=== PATIENT | female | born 1980 | race Caucasian/White ===

== ENCOUNTER 2017-12-16 06:32 | Day surgery (SDC) | payer MEDICAID ==
[~2017-12-16 06:32] MED LIST: LACTATED RINGER'S 1,000 ML (ENTER RATE) IV*
[2017-12-16] MEDS ORDERED: LIDOCAINE 2% (SDV) 5 ML INJ (07:00)
[2017-12-16 07:26] LABS: ADD MAN DIFF? NO
[2017-12-16 07:28] LABS: BASOPHIL # 0.1 10^3/ul (0.0-0.1); BASOPHILS % 0.9 % (0.0-2.0); EOSINOPHILS # 0.1 10^3/ul (0.0-0.5); EOSINOPHILS % 2.5 % (0.0-7.0); HEMATOCRIT 38.8 % (37.0-47.0); HEMOGLOBIN 13.2 g/dl (12.0-16.0); LYMPHOCYTES # 1.8 10^3/ul (0.8-2.9); LYMPHOCYTES % 31.3 % (15.0-51.0); MEAN CORPUSCULAR HEMOGLOBIN 29.8 pg (29.0-33.0); MEAN CORPUSCULAR VOLUME 87.6 fl (82.0-101.0); MEAN PLATELET VOLUME 11.8 fl (7.4-10.4); MONOCYTE # 0.4 10^3/ul (0.3-0.9); MONOCYTES % 7.2 % (0.0-11.0); NEUTROPHIL # 3.3 10^3/ul (1.6-7.5); NEUTROPHILS % 57.9 % (39.0-77.0); PLATELET COUNT 184 10^3/UL (140-415); RED BLOOD COUNT 4.43 10^6/ul (4.20-5.40); RED CELL DISTRIBUTION WIDTH 12.1 % (11.5-14.5)
[2017-12-16 07:28] LABS: WHITE BLOOD COUNT 5.7 10^3/ul (4.8-10.8)
[2017-12-16 07:44] LABS: ADD UMIC YES; UR ASCORBIC ACID NEGATIVE (NEGATIVE); UR BACTERIA FEW /HPF (NONE SEEN); UR BILIRUBIN (Dip) NEGATIVE (NEGATIVE); UR BLOOD (Dip) 3+ mg/dL (NEGATIVE); UR CLARITY CLOUDY (CLEAR); UR COLOR RED (YELLOW); UR GLUCOSE (Dip) NEGATIVE (NEGATIVE); UR KETONES (Dip) NEGATIVE (NEGATIVE); UR LEUKOCYTE ESTERASE (Dip) NEGATIVE Leu/ul (NEGATIVE); UR NITRITE (Dip) NEGATIVE (NEGATIVE); UR RBC > 182 /HPF (0-5); UR SPECIFIC GRAVITY (Dip) 1.023 (1.003-1.030); UR SQUAMOUS EPITHELIAL CELL FEW /HPF (FEW); UR TOTAL PROTEIN (Dip) 2+ mg/dl (NEGATIVE); UR UROBILINOGEN (Dip) NEGATIVE (NEGATIVE); UR WBC > 182 /HPF (0-5)
[2017-12-16] MEDS ORDERED: PROPOFOL 100 ML (07:49)
[2017-12-16] MEDS ORDERED: ROCURONIUM 50 MG INJ (07:50)
[2017-12-16 07:51] LABS: INR 0.94; PARTIAL THROMBOPLASTIN TIME 30.1 Sec (23.0-35.0); PROTIME 12.7 Sec (11.9-14.9)
[2017-12-16 07:56] LABS: ALANINE AMINOTRANSFERASE 24 IU/L (13-69); ALBUMIN 3.7 g/dl (3.3-4.9); ALBUMIN/GLOBULIN RATIO 1.12; ALKALINE PHOSPHATASE 53 IU/L (42-121); ANION GAP 13 (8-16); ASPARTATE AMINO TRANSFERASE 19 IU/L (15-46); BLOOD UREA NITROGEN 18 mg/dl (7-20); CALCIUM 9.1 mg/dl (8.4-10.2); CARBON DIOXIDE 22 mmol/L (21-31); CHLORIDE 109 mmol/L (97-110); CREATININE 0.68 mg/dl (0.44-1.00); GLUCOSE 97 mg/dl (70-220); POTASSIUM 3.9 mmol/L (3.5-5.1); SODIUM 140 mmol/L (135-144)
[2017-12-16] MEDS: BUPIVACAINE 0.5%/EPI (SDV) 30 ML INJ (08:13)
[2017-12-16] MEDS ORDERED: ACETAMINOPHEN 1000MG/100ML IV 100 ML (08:15)
[2017-12-16] MEDS ORDERED: SUGAMMADEX SODIUM 200 MG/2 ML VIAL IV (08:15)
[2017-12-16] MEDS ORDERED: CEFAZOLIN 1 GM INJ (08:15)
[2017-12-16] MEDS ORDERED: ONDANSETRON 4 MG INJ (08:16)
[2017-12-16] MEDS ORDERED: DEXAMETHASONE 4 MG/ML 1 ML INJ (08:16)
[2017-12-16] MEDS ORDERED: LACTATED RINGER'S 1,000 ML IV (08:41)
[2017-12-16] MEDS ORDERED: ALBUTEROL 0.083% (NEB) 2.5 MG/3 ML AMP HHN (09:00)
[2017-12-16] MEDS ORDERED: MEPERIDINE 25 MG INJ IV (09:00)
[2017-12-16] MEDS ORDERED: METOCLOPRAMIDE 10 MG INJ IV (09:00)
[2017-12-16] MEDS ORDERED: hydrALAzine 20 MG INJ IV (09:00)
[2017-12-16] MEDS ORDERED: OXYCODONE/ACETAMINOPHEN (5/325) TAB PO ×3 (09:00)
[2017-12-16] MEDS ORDERED: ONDANSETRON 4 MG INJ IV (09:00)
[2017-12-16] MEDS ORDERED: IBUPROFEN 600 MG TAB PO (09:00)
[2017-12-16] MEDS ORDERED: ACETAMINOPHEN 325 MG TAB PO (09:00)
[2017-12-16] MEDS ORDERED: FENTAnyl 50 MCG/ML VIAL IV ×3 (09:00)
[2017-12-16] MEDS ORDERED: MIDAZOLAM 1 MG/ML 2 ML INJ IV (09:00)
[2017-12-16] MEDS ORDERED: EPHEDrine SULFATE 50 MG/5 ML SYG IV (09:00)
[2017-12-16] MEDS ORDERED: DIPHENHYDRAMINE 50 MG INJ IV (09:00)
[2017-12-16] MEDS ORDERED: HYDROmorphONE 1 MG/5 ML IV SYRINGE IV (09:00)
[2017-12-16] MEDS ORDERED: morphine 2 MG INJ IV (09:00)
[2017-12-16] MEDS ORDERED: LABETALOL HCL 20MG INJ IV (09:00)
[2017-12-16] MEDS: ONDANSETRON 4 MG INJ IV (09:06)
[2017-12-16] MEDS: HYDROmorphONE 1 MG/5 ML IV SYRINGE IV ×2 (09:06→09:18)
[2017-12-16] MEDS: KETOROLAC 30 MG INJ IV (09:28)
== END 2017-12-16 10:28 | disposition home or self-care (01) ==
LOC: SDS 06:32
DX: Z30.2 Encounter for sterilization (principal); E66.9 Obesity, unspecified; Z68.41 Body mass index [BMI] 40.0-44.9, adult
CPT/HCPCS: 58670; 80053; 81001; 85025; 85610; 85730; 86850; 86900; 86901